=== PATIENT | female | born 1965 | race American Indian/Alaskan Native ===

== ENCOUNTER 2017-11-19 06:11 | Inpatient (IN) | payer MEDICARE ==
[2017-11-16 09:39] LABS: ABSOLUTE BASOPHILS 0.1 thou/uL (0.0-0.2); ABSOLUTE EOSINOPHILS 0.2 thou/uL (0.0-0.7); ABSOLUTE LYMPHOCYTES 1.2 thou/uL (0.8-5.3); ABSOLUTE MONOCYTES 0.4 thou/uL (0.0-1.2); ABSOLUTE NEUTROPHILS 3.7 thou/uL (1.6-8.1); BASOPHILS 1.1 %; EOSINOPHILS 3.5 %; HEMATOCRIT 38.4 % (37.0-47.0); HEMOGLOBIN 12.7 gm/dL (12.0-15.0); LYMPHOCYTES 21.9 %; MCH 32.4 pg (26.0-34.0); MCV 98.1 fL (80.0-100.0); MONOCYTES 7.9 %; MPV 7.6 fl. (7.2-11.1); NUCLEATED RBCS 0 /100WBC; PLATELET COUNT* 261 thou/uL (150-400); POLYS 65.6 %; RBC 3.92 mil/uL (4.20-5.00); RDW-CV 12.9 % (10.5-14.5); WBC 5.6 thou/uL (4.0-11.0)
[2017-11-16 09:44] LABS: APTT 25.9 Seconds (25.0-31.3); INR 1.1; PROTIME 10.4 Seconds (9.20-11.50)
[2017-11-16 09:46] LABS: CALCIUM 8.8 mg/dL (8.5-10.1); CREATININE 0.9 mg/dL (0.6-1.3); POTASSIUM 4.3 mmol/L (3.5-5.1)
[2017-11-16 09:51] LABS: ALBUMIN 3.5 g/dL (3.4-5.0); TOTAL BILIRUBIN 0.3 mg/dL (<0.1-1.0); TOTAL PROTEIN 7.6 g/dL (6.4-8.2)
--- NOTE | 2017-11-16 10:35 | EKG ---
[place] [address] ELECTROCARDIOGRAM REPORT Name: ALLEN DUBOSE Room: [facility].#: [id number] Admission: Attend Phys: Humphrey Contreras, Discharge: Date of : 61 Report #: [id number] THIS REPORT FOR: //name// [facility] Test Date: 2017-11-16 Test Time: 09:46:23 Pat Name: ALLEN DUBOSE Department: Room: Gender: F Game Operator: JORGE LUIS : 1965 Requested By: Humphrey Contreras Order Number: [id number] Reading MD: Johnny Bradley Measurements Intervals [place] Rate: 65 P: 21 MO: 131 QRS: 37 QRSD: 77 T: 35 QT: 426 QTc: 443 Interpretive Statements Sinus rhythm No previous ECG available for comparison Electronically Signed On 11-16-2017 10:34:53 CDT by Johnny Bradley [email or web address] <ELECTRONICALLY SIGNED> By: Johnny Bradley MD, [facility] 11/16/17 1034 0946 0946 Johnny Bradley MD, FACC /EPI
[2017-11-16 11:21] LABS: ESR (SEDRATE) 20 mm/hr (0-30)
[2017-11-17 02:11] LABS: GLYCOHEMOGLOBIN (HGB A1C) 4.9 % (4.8-5.6)
[~2017-11-19] VITALS: Ht 172.7 cm; Wt 93.4 kg
[~2017-11-19 06:11] MED LIST: ACCUNEB SO1.25 MG/1 INH; CLONAZEPAM 0.50.5 M1 PO; CYANOCOBAL1000 MCG/1 IM; FLEXERIL PO; FLONASE 0.05%50 MCG NASAL; LEXAPRO 10 MG T10 M1 PO; LISINOPRIL40 MG PO; LITHIUM CARBON300 M3 PO; SPIRIVA INH; SYNTHROID88 MCG PO; TOPAMAX 100 MG100 MG PO; TOPAMAX50 MG PO; TRAZODONE HCL50 MG PO; UNICOMPLEX M TA1 TA1 PO
[2017-11-19 07:12] VITALS: BP 123/80
[2017-11-19 12:30] VITALS: BP 127/71
[2017-11-19 17:00] VITALS: BP 122/77
--- NOTE | 2017-11-19 19:05 | NUR ---
PT VSS THIS SHIFT. IV FLUIDS AND ABX STARTED. POLAR PACK AND CPM OBTAINED. PHYSICIAN STATED THAT THEY DID NOT KNOW THEY WERE ORDERED. PT AMBULATED IN THE HALLS THIS SHIFT. PT PAIN WELL MANAGED AT THIS TIME. PT UP TO BATHROOM WITH WALKER, GAIT BELT, AND ASSIST X1 THIS SHIFT. PT TOLERATING DIET AT THIS TIME.
[2017-11-19 20:00] VITALS: BP 200/85
[2017-11-20] VITALS: BP 152/84
[2017-11-20 04:30] VITALS: BP 209/92
[2017-11-20 05:09] LABS: HEMATOCRIT 30.8 % (37.0-47.0); HEMOGLOBIN 10.3 gm/dL (12.0-15.0)
--- NOTE | 2017-11-20 07:55 | NUR ---
Alert and oriented x 4. Rt knee mepilex dressing is dry and intact with polarcare in place. She was getting up to the bathroom with mostly stand by assist with walker. BP has been running high but she states it's due to being in pain. She has been on a capno with O2 at 2L n/c and sat has been 98-100%. This am the capno was alarming and not reading her oxygen or pulse but her hands were very cold. BP was still high but the rest of her vitals were in normal limits. Hemoglobin was above 10 this am. She is doing well this am. Report passed on to dayshift.
[2017-11-20 08:00] VITALS: BP 121/67
--- NOTE | 2017-11-20 09:06 | NUR ---
OT SERVICES NOT INDICATED AT THIS TIME, DEFER TO P.T. PLEASE ORDER FURTHER OT SERVICES IF INDICATED.
--- NOTE | 2017-11-20 09:11 | NUR ---
I have reviewed the documentation by NATALIE BAKER LIMITED PERMIT from 11/20/17 to 11/20/17 and I concur with it. JULIO C SANCHEZ
[2017-11-20 11:16] VITALS: BP 121/67
[2017-11-20] MEDS ORDERED: NORCO 5-325 TA1 EACH PO (11:20)
[2017-11-20] MEDS ORDERED: OXYBUTYNIN 5 MG5 M2 PO (11:22)
[2017-11-20] MEDS ORDERED: ELIQUIS2.5 MG PO (11:22)
[2017-11-20] MEDS ORDERED: OXYCONTIN10 M1 PO (11:36)
--- NOTE | 2017-11-20 12:38 | NUR ---
CALLED IN PRESCRIPTION FOR ELIQUIS WRITTEN TO JULITA/YUMIKO [phone]. COPAY TO BE CALLED TO CM. WILL INFORM PT.
--- NOTE | 2017-11-20 14:49 | NUR ---
ASSUMED CARE OF PATIENT AFTER MORNING REPORT. ALERT AND ORIENTED X4. ASSESSMENT COMPLETED AND CHARTED. VSS ON ROOM AIR. NO COMPLAINTS OF NAUSE OR SOA. PAIN HAS BEEN MANAGED WITH PO PAIN MEDICATION. FLUIDS DISCONTINUED THIS AM. ANTIBIOTICSINFUSED ORDERED. PATIENT USED CPM AFTER MORNING THERAPY. WORKED VERY WELL WITH THERAPY TODAY AND CLEARED FOR DISCHARGE TO HOME WITH HOME HEALTH. PATIENT DISCHARGED AT 1437, ALL PERSONAL BELONGINGS, PRESCRIPTIONS, AND DISCHARGE INFORMATION SENT WITH PATIENT UPON DISCHARGE.
--- NOTE | 2018-01-06 08:09 | OP ---
[address] [address] OPERATIVE REPORT Name: ALLEN DUBOSE Room: [address]#: [id number] Admission: 11/19/17 Attend Phys: Kin Sheth Discharge: 11/20/17 Date of : 61 Report #: [id number] THIS REPORT FOR: //name// CC: Humphrey Trinh DICTATED BY: Salas Sanchez DO DATE OF SERVICE: 11/19/2017 PREOPERATIVE DIAGNOSIS: Right knee pain, lateral subluxing patella. 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 PROCEDURE: 1. Revision right total knee arthroplasty, patellar component. 2. Polyethylene exchange, right knee. 3. Extensive synovectomy and particle debris removal. ORTHOPEDIC IMPLANTS: MicroPort size 32 round patellar button and Exactech size 13 polyethylene posterior stabilized liner. SURGEON: Humphrey Contreras DO. SATELLITE INSTALLER: Dr. Salas Sanchez and Dr. Nate Bassett. ESTIMATED BLOOD LOSS: 50 mL. PREOPERATIVE ANTIBIOTICS: 1 gram Ancef. COMPLICATIONS: None. DRAINS: None. CONDITION: The patient is stable to PACU. INDICATIONS FOR PROCEDURE: This 52-year-old female had a total knee arthroplasty back in 2010. She has been dealing with right knee pain. It was found that the patient had a lateral subluxing patella as well as a lateral osteophyte that was causing significant pain and discomfort. The patient elected to have a revision of patellar component and polyethylene exchange. DESCRIPTION OF PROCEDURE: Once written and verbal consent was obtained, the patient was taken from the preoperative holding area to the operating suite. [address] [address] OPERATIVE REPORT Name: ALLEN DUBOSE Room: [address]#: [id number] Admission: 11/19/17 Attend Phys: Kin Sheth Discharge: 11/20/17 Date of : 61 Report #: [id number] She was given the benefit of general anesthesia and the right lower extremity was prepared for surgery. A well-padded tourniquet ____ sterilely prepped and draped in resource protection specialist manner. Timeout was performed to verify the correct operative site, location and procedure. The old incision was utilized and a medial capsulotomy was performed. The patella was everted laterally. The patellar button was found to be fairly well fixated and it was removed with an osteotome and rongeur. It was removed all in one piece. The patella was found to be eccentrically cut and lateral osteophyte was removed. Next, a freehand patellar cut was made, leaving approximately 11 mm of patella remaining. This was a nice flat surface. The polyethylene liner was examined. The post of the posterior stabilized liner was found to be fractured and was removed from the joint. A trial 13 liner was used and found to have good stability and full range of motion. A final 13 liner was placed after the knee was thoroughly irrigated. A synovectomy was performed and the final size 32 round patellar button was placed. The cement was allowed to harden. TXA topical was used ____ ropivacaine cocktail was injected around the knee. The wound was thoroughly irrigated. 1 gram of vancomycin powder was placed in the knee. The capsule was closed with a #1 Vicryl, 2-0 Vicryl in the skin and a running Stratafix suture as well as surgical glue and a Mepilex dressing was applied to the right lower extremity. The patient was awakened, taken to PACU in stable condition. <ELECTRONICALLY SIGNED> By: Michael Bucio DO 01/06/18 0809 1046 [id number] Contreras DO /george
== END 2017-11-20 14:37 | disposition home health service (06) | DRG 464 ==
LOC: M.SUR 06:11 → M.TBA-ER 08:27 → M.SUR 09:02 → M.TBA 11:02 → M.ORTHSURG 11:02
PROVIDERS: Orthopaedic Surgery; ADMIT Internal Medicine
DX: T84.022A Instability of internal right knee prosthesis, initial encounter (principal); R71.0 Precipitous drop in hematocrit; M25.861 Other specified joint disorders, right knee; F41.9 Anxiety disorder, unspecified; F32.9 Major depressive disorder, single episode, unspecified; J44.9 Chronic obstructive pulmonary disease, unspecified; M81.0 Age-related osteoporosis without current pathological fracture; I10 Essential (primary) hypertension; E03.9 Hypothyroidism, unspecified; G62.9 Polyneuropathy, unspecified; M17.0 Bilateral primary osteoarthritis of knee; Z96.653 Presence of artificial knee joint, bilateral; Y83.8 Other surgical procedures as the cause of abnormal reaction of the patient, or of later complication, without mention of misadventure at the time of the procedure; Z90.710 Acquired absence of both cervix and uterus; Z90.49 Acquired absence of other specified parts of digestive tract; Z98.84 Bariatric surgery status; Z86.14 Personal history of Methicillin resistant Staphylococcus aureus infection; Z88.6 Allergy status to analgesic agent; Z87.891 Personal history of nicotine dependence; Z80.9 Family history of malignant neoplasm, unspecified; Y92.89 Other specified places as the place of occurrence of the external cause